=== PATIENT | female | born 1985 | race Caucasian/White ===

== ENCOUNTER 2017-02-28 10:01 | Emergency (ER) | payer OTHER ==
[~2017-02-28] VITALS: Ht 154.9 cm; Wt 58.3 kg
[~2017-02-28 10:01] MED LIST: DOCUSATE SODIU100 MG PO; ENDOCET 5-3251 EACH PO; IBUPROFEN800 MG PO; NORCO 5/3251 TABLET PO; PRENATAL TABLE1 EAC3 PO; TYLENOL REGULA325 MG PO
[2017-02-28 11:00] LABS: EOSINOPHIL (%) 1.4 % (0-5); EOSINOPHIL COUNT 0.1 K/uL (0-0.3); HEMATOCRIT 40.8 % (36.0-46.0); IMMATURE GRANULOCYTE (%) 0.5 % (0.0-0.7); INSTRUMENT ABS NEUTROPHIL CT 2.7 K/uL; MCHC 33.3 G/DL (30.0-36.0); MCV 90.1 FL (83-99); MEAN PLAT.VOLUME 11.2 uM^3 (9.5-12.4); MONOCYTE (%) 10.8 % (3-12); MONOCYTE COUNT 0.5 K/uL (0-0.8); NEUTROPHIL (%) 63.5 % (45-76); NEUTROPHIL COUNT 2.7 K/uL (1.8-6.4); PLATELET COUNT 174 K/uL (156-360); RBC DIS.WIDTH-CV 12.4 % (11.8-14.6); RED BLOOD COUNT 4.53 M/uL (3.80-5.20); WHITE BLOOD COUNT 4.2 K/uL (4.1-10.2)
[2017-02-28 11:11] LABS: CHLORIDE 108 mEq/L (99-109); POTASSIUM 4.9 mEq/L (3.7-5.4); SODIUM 139 mEq/L (136-147)
[2017-02-28 11:12] LABS: GLUCOSE 89 mg/dL (70-99)
[2017-02-28 11:14] LABS: ANION GAP 7 MEQ/L (2-14)
[2017-02-28 11:16] LABS: GFR ESTIMATE (CALCULATED) > 59 mL/min/
[2017-02-28 11:17] LABS: UREA NITROGEN (BUN) 19 mg/dL (9-23)
[2017-02-28 11:24] LABS: QUANTITATIVE HCG < 4.0 MIU/ML
[2017-02-28 15:14] VITALS: BP 113/77
== END 2017-02-28 15:39 | disposition home or self-care (01) ==
LOC: EME 10:01
PROVIDERS: Emergency Medicine
DX: R20.0 Anesthesia of skin (principal); R42 Dizziness and giddiness
CPT/HCPCS: 72156; 80048; 84702; 85025; 99281; 99285; J7040

== ENCOUNTER 2017-03-03 07:29 | Emergency (ER) | payer OTHER ==
[~2017-03-03] VITALS: Ht 154.9 cm; Wt 57.5 kg
[2017-03-03 08:41] LABS: COLOR BLOODY ((YELLOW)); LEUKOCYTES MODERATE; NITRITE NEGATIVE; SPECIFIC GRAVITY 1.015 (1.000-1.030)
[2017-03-03 08:42] LABS: ADD MIUA? YES; BILIRUBIN NEGATIVE; BLOOD LARGE; GLUCOSE (STRIP) NEGATIVE; KETONES NEGATIVE; PROTEIN (STRIP) >=2000; UROBILINOGEN 0.2 MG/DL (0.2-1.0)
[2017-03-03 08:43] LABS: RED BLOOD CELLS TNTC /HPF (0-5)
[2017-03-03] MEDS ORDERED: KEFLEX500 MG PO (08:59)
[2017-03-03 09:24] VITALS: BP 143/78
== END 2017-03-03 09:28 | disposition home or self-care (01) ==
LOC: EME 07:29
PROVIDERS: Physician Assistant
DX: N39.0 Urinary tract infection, site not specified (principal)
CPT/HCPCS: 81003; 84702; 87077; 87086; 87186; 99281; 99284